=== PATIENT | female | born 2000 | race African-American/Black ===

== ENCOUNTER 2024-02-14 09:11 | Emergency (ER) | payer MEDICAID ==
[~2024-02-14] VITALS: Ht 160 cm; Wt 116.7 kg
[2024-02-14 10:04] VITALS: BP 155/98; PULSE 92; RESP 18; TEMP 98.5; O2SAT 98
[2024-02-14] MEDS ORDERED: BENZ200C64 PO (10:39)
[2024-02-14] MEDS ORDERED: AZIT500T66 PO (10:39)
[2024-02-14] MEDS ORDERED: PROM1SOL4 PO (11:14)
== END 2024-02-14 10:47 | disposition home or self-care (01) ==
LOC: ER 09:11
DX: J03.90 Acute tonsillitis, unspecified (principal); J20.9 Acute bronchitis, unspecified
CPT/HCPCS: 71046; 81025

== ENCOUNTER 2024-06-17 17:45 | Emergency (ER) | payer MEDICAID, OTHER ==
[~2024-06-17] VITALS: Ht 160 cm; Wt 122.4 kg
[~2024-06-17 17:45] MED LIST: AZIT500T66 PO; PROM1SOL4 PO
[2024-06-17 18:04] VITALS: BP 125/92; PULSE 83; RESP 16; TEMP 98.9; O2SAT 98
[2024-06-17] MEDS ORDERED: ACET500T58 PO (21:20)
[2024-06-17] MEDS ORDERED: AMOX875T4 PO (21:20)
[2024-06-17] MEDS: cefTRIAXone SOD 1,000 MG VL IM ONE (21:49)
== END 2024-06-17 22:51 | disposition home or self-care (01) ==
LOC: ER 17:45
DX: S21.052A Open bite of left breast, initial encounter (principal); Z79.899 Other long term (current) drug therapy; Z98.890 Other specified postprocedural states; W50.3XXA Accidental bite by another person, initial encounter; Y93.89 Activity, other specified; Y92.89 Other specified places as the place of occurrence of the external cause; Y99.8 Other external cause status
CPT/HCPCS: 96372; 99283; J0696